=== PATIENT | male | born 1980 | race Caucasian/White ===

== ENCOUNTER 2018-03-17 09:07 | Emergency (ER) | payer OTHER ==
[2018-03-17] MEDS ORDERED: Sodium Chloride 0.9% 10 ML Syringe FLUSH PRN (09:14)
--- NOTE | 2018-03-17 09:14 | EDM.PDOC ---
ED HPI GENERAL MEDICAL PROBLEM - General Chief Complaint: Genitourinary Problem Stated Complaint: [id number] KIDNEY STONES Time Seen by Provider: 03/17/18 09:11 Source of Information: Reports: Patient, RN, RN Notes Reviewed History Limitations: Reports: No Limitations - History of Present Illness INITIAL COMMENTS - FREE TEXT/NARRATIVE: Pt presents to ER by POV with c/o possible kidney stone that began with sudden bladder pain last night and Rt flank pain radiating to the groin. Denies fevers or chills. Hx of prev. kidney stones. Admits to red tinged urine. Onset: Sudden Onset Date: 03/16/18 Duration: Intermittent Location: Reports: Other (Rt flank) Quality: Reports: Same as Previous Episode Severity: Severe Improves with: Reports: None Worsens with: Reports: None Right Flank Pain Score (Numeric/FACES): 10 - Related Data Allergies Allergy/AdvReac Type Severity Reaction Status Date / Time No Known Allergies Allergy Verified 03/17/18 09:12 Home Meds: Home Meds . [No Known Home Meds] 03/17/18 [History] Past Medical History Genitourinary History: Reports: Renal Calculus Musculoskeletal History: Reports: Other (See Below) (Knee injury) Endocrine/Metabolic History: Reports: Obesity/BMI 30+ - Past Surgical History Male Surgical History: Reports: Kidney Stone Extraction Musculoskeletal Surgical History: Reports: Arthroscopic Knee Social & Family History - Family History Family Medical History: Noncontributory - Tobacco Use Smoking Status *Q: Current Every Day Smoker Tobacco Use Within Last Twelve Months: Cigarettes - Living Situation & Occupation Living situation: Reports: , with Spouse Occupation: Employed ED ROS GENERAL - Review of Systems Review Of Systems: ROS reveals no pertinent complaints other than HPI. ED EXAM, RENAL/ - Physical Exam Exam: See Below Exam Limited By: No Limitations General Appearance: Alert, No Apparent Distress, Obese, Other (uncomfortable, but not toxic appearing) Eye Exam: Bilateral Eye: Normal Inspection Throat/Mouth: Normal Inspection, Normal Lips, Normal Teeth, Normal Gums, Normal Oropharynx, Normal Voice, No Airway Compromise Head: Atraumatic, Normocephalic Respiratory/Chest: No Respiratory Distress, Lungs Clear, Normal Breath Sounds, No Accessory Muscle Use, Chest Non-Tender Cardiovascular: Regular Rate, Rhythm, No Edema GI/Abdominal: Normal Bowel Sounds, Soft, Non-Tender, No Distention, No Abnormal Bruit, Other (benign obese abdomen). No: Guarding, Rigid, Rebound (Male) Exam: Deferred Rectal (Males) Exam: Deferred Back Exam: Normal Inspection, Full Range of Motion. No: CVA Tenderness (L), CVA Tenderness (R) Extremities: Normal Inspection Neurological: Alert, Oriented, CN II-XII Intact, Normal Cognition, Normal Gait, No Motor/Sensory Deficits Psychiatric: Normal Affect, Normal Mood Skin Exam: Warm, Dry, Intact, Normal Color, No Rash Course - Vital Signs Last Recorded V/S: Last Vital Signs Temp 36.1 C 03/17/18 09:14 Pulse 62 03/17/18 09:14 Resp 18 03/17/18 09:14 BP 168/86 H 03/17/18 09:14 Pulse Ox 99 03/17/18 09:14 - Orders/Labs/Meds Orders: Active Orders 24 hr Category Date Time Status Peripheral IV Care [RC] . DIRECTED Care 03/17/18 09:14 Active Abdomen Pelvis wo Cont [CT] Urgent Exams 03/17/18 09:21 Taken UA W/MICROSCOPIC [URIN] Stat Lab 03/17/18 09:17 Ordered Sodium Chloride 0.9% [Saline Flush] Med 03/17/18 09:14 Active 10 ml FLUSH ASDIRECTED PRN Peripheral IV Insertion Adult [OM.PC] Stat Oth 03/17/18 09:14 Ordered Medication Orders Sodium Chloride (Saline Flush) 10 ml FLUSH ASDIRECTED PRN PRN Reason: Keep Vein Open Last Admin: 03/17/18 09:31 Dose: 10 ml Labs: Laboratory Tests 03/17/18 Range/Units 09:17 Urine Color Yellow (YELLOW) Urine Appearance Clear (CLEAR) Urine pH 5.5 (5.0-9.0) Ur Specific [place] >= 1.030 (1.005-1.030) Urine Protein 30 H (NEGATIVE) Urine Glucose (UA) Negative (NEGATIVE) Urine Ketones Negative (NEGATIVE) Urine Occult Blood Large H (NEGATIVE) Urine Nitrite Negative (NEGATIVE) Urine Bilirubin Negative (NEGATIVE) Urine Urobilinogen 0.2 (0.2-1.0) mg/dL Ur Leukocyte Esterase Negative (NEGATIVE) Urine RBC >100 H /HPF Urine WBC 0-5 (0-5/HPF) /HPF Ur Epithelial Cells Rare /HPF Urine Bacteria Few (0-FEW/HPF) /HPF Urine Mucus Moderate H /LPF Urinalysis Comment See note Meds: Medications Generic Name Dose Route Start Last Admin Trade Name Reilly PRN Reason Stop Dose Admin Sodium Chloride 10 ml 03/17/18 09:14 03/17/18 09:31 Saline Flush FLUSH 10 ml ASDIRECTED PRN Administration Keep Vein Open Discontinued Medications Generic Name Dose Route Start Last Admin Trade Name Reilly PRN Reason Stop Dose Admin Hydromorphone HCl 1 mg 03/17/18 09:20 03/17/18 09:28 Dilaudid IVPUSH 03/17/18 09:21 1 mg ONETIME ONE Administration Sodium Chloride 1,000 mls @ 999 mls/hr 03/17/18 09:19 03/17/18 09:26 Normal Saline IV 03/17/18 10:19 999 mls/hr .BOLUS ONE Administration Ketorolac Tromethamine 30 mg 03/17/18 09:19 03/17/18 09:28 Toradol IVPUSH 03/17/18 09:20 30 mg ONETIME ONE Administration Ondansetron HCl 4 mg 03/17/18 09:19 03/17/18 09:28 Zofran IV 03/17/18 09:20 4 mg ONETIME ONE Administration Tamsulosin HCl 0.4 mg 03/17/18 09:20 03/17/18 09:32 Flomax PO 03/17/18 09:21 0.4 mg ONETIME ONE Administration - Radiology Interpretation Free Text/Narrative:: CT Abd/Pelvis: Distal Rt ureter stone, non-obstructing stones within both the left & right kidneys; see Rad. report. CT Results Date: 03/17/18 Departure - Departure Time of Disposition: 10:23 Disposition: Home, Self-Care 01 Condition: Good Clinical Impression: Kidney stone, Calculus of distal right ureter - Discharge Information Instructions: Kidney Stones, [id number] Forms: ED Department Discharge Additional Instructions: Rx: Flomax 0.4mg Rx: Percocet 5mg/325mg *Do not drive or work while under the influence of this medication. Rx: Zofran 4mg Follow up with your urologist at the first available appointment. Return to ER if you develop a fever, are unable to pass your urine, or have uncontrolled pain. - My Orders Last 24 Hours: My Active Orders 03/17/18 09:14 Peripheral IV Care [RC] . DIRECTED Sodium Chloride 0.9% [Saline Flush] 10 ml FLUSH ASDIRECTED PRN Peripheral IV Insertion Adult [OM.PC] Stat 03/17/18 09:17 UA W/MICROSCOPIC [URIN] Stat 03/17/18 09:21 Abdomen Pelvis wo Cont [CT] Urgent - Assessment/Plan Last 24 Hours: My Active Orders 03/17/18 09:14 Peripheral IV Care [RC] . DIRECTED Sodium Chloride 0.9% [Saline Flush] 10 ml FLUSH ASDIRECTED PRN Peripheral IV Insertion Adult [OM.PC] Stat 03/17/18 09:17 UA W/MICROSCOPIC [URIN] Stat 03/17/18 09:21 Abdomen Pelvis wo Cont [CT] Urgent
[2018-03-17] MEDS ORDERED: Ketorolac 30 MG/ML SDV IVPUSH ONE (09:19)
[2018-03-17] MEDS ORDERED: Sodium Chloride 0.9% 1,000 ML IV ONE (09:19)
[2018-03-17] MEDS ORDERED: Ondansetron 4 MG/2 ML SDV IV ONE (09:19)
[2018-03-17] MEDS ORDERED: HYDROmorphone 0.5 MG/0.5 ML Syringe IVPUSH ONE ×2 (09:20→10:32)
[2018-03-17] MEDS ORDERED: Tamsulosin 0.4 MG Cap.ER PO ONE (09:20)
== END 2018-03-17 11:15 | disposition home or self-care (01) ==
LOC: DL.ED 09:07
DX: N13.2 Hydronephrosis with renal and ureteral calculous obstruction (principal); F17.210 Nicotine dependence, cigarettes, uncomplicated
CPT/HCPCS: 74176; 81001; 96361; 96374; 96375; 96376; 99284; A9270; J1170; J1885; J2405; J7030; J7050